=== PATIENT | female | born 1985 | race Caucasian/White ===

== ENCOUNTER → 2017-01-06 | Outpatient (CLI) | payer MEDICAID ==
[~2017-01-06] MED LIST: BACTRIM DS 8001 TA1 PO; CIPRO 500MG TA500 MG PO; IBUPROFEN800 MG PO; KEFLEX 500MG.500 MG PO; KLONOPIN 0.5MG0.5 MG NG; MACROBID 100MG100 MG PO; MOTRIN 400MG.400 MG PO; NEURONTIN600 MG PO; PERCOCET 5/3251 EACH PO; PERCOCET1 TAB PO; PRENATAL PLUS1 TA1 PO; ZITHROMAX Z PA250 MG PO
[2017-01-06 16:22] LABS: AMPHETAMINES/METAMPHETAMINES NEGATIVE ng/mL (<1000)
[2017-01-13 03:36] LABS: Alprazolam Positive (.); Benzodiazepines Positive ng/mL (Cutoff=100); Clonazepam Negative (Cutoff=100); Flurazepam Negative (Cutoff=100); Lorazepam Negative (Cutoff=100); Midazolam Negative (Cutoff=100); Temazepam Negative (Cutoff=100); Triazolam Negative (Cutoff=100)
== END ==
LOC: LAB 13:52
PROVIDERS: Nurse Practitioner Family
DX: Z79.899 Other long term (current) drug therapy (principal)
CPT/HCPCS: G0480

== ENCOUNTER → 2017-08-18 | Outpatient (CLI) | payer MEDICAID ==
[~2017-08-18] MED LIST changes: +MACRODANTIN100 MG PO; +XANAX 0.5MG TA0.5 MG PO
[2017-08-18 15:34] LABS: AMPHETAMINES/METAMPHETAMINES NEGATIVE ng/mL (<1000)
== END ==
LOC: LAB 15:03
PROVIDERS: Nurse Practitioner Family
DX: Z79.899 Other long term (current) drug therapy (principal)